=== PATIENT | female | born 1995 | race African-American/Black ===

== ENCOUNTER 2018-10-20 12:33 | Emergency (ER) | payer OTHER ==
[2018-10-20 12:44] VITALS: BMI 33.1
--- NOTE | 2018-10-20 13:14 | PDOC ---
History of Present Illness - General Chief Complaint: Weakness Stated Complaint: WEAKNESS Time Seen by Provider: 10/20/18 12:57 History Source: Patient Exam Limitations: Clinical Condition - History of Present Illness Initial Comments: 10/20/18 13:30 Patient with h/p bipola disorder, anxiety, GERD present with complains of diffused body pains, MENSAH and tingling sensation throughout lower back, lower legs and hands x 3 days. Patient report doing weight lifting and exercise at home 3 days ago prior to symptoms started. Patient have self d/c'ed her bipola, anxiety and GERD medication for a week now. Mother report patient was seen by psychiatrist 3 days ago for insomnia and started on medication for insomnia which Pt has stopped taking. Patient was seen 2 months ago for lower back pains and MRI of lumbar and theracic spine was unremarkable Timing/Duration: other (3 days) Past History - Past Medical History Allergies/Adverse Reactions: Allergies Allergy/AdvReac Type Severity Reaction Status Date / Time Penicillins Allergy Verified 10/20/18 12:38 Home Medications: Ambulatory Orders Methocarbamol [Robaxin -] 500 mg PO BID #14 tablet 10/20/18 Mirtazapine 7.5 mg PO HS 10/20/18 Naproxen 500 mg PO BID PRN #20 tablet 10/20/18 Omeprazole 20 mg PO BID 10/20/18 Asthma: Yes (rescue inhaler prn) COPD: No GI Disorders: Yes - Surgical History Cholecystectomy: Yes - Suicide/Smoking/Psychosocial Hx Smoking History: Never smoked Review of Systems - Review of Systems Able to Perform ROS?: Yes Is the patient limited Montenegrin proficient: No Constitutional: Yes: See HPI, Malaise HEENTM: No: Eye Pain, Blurred Vision, Recent change in vision, Ear Pain Respiratory: No: Symptoms reported, See HPI, Cough, Orthopnea, Shortness of Breath, SOB with Exertion, SOB at Rest, Stridor, Wheezing, Productive cough, Hemoptysis, Other Cardiac (ROS): No: Symptoms Reported, See HPI, Chest Pain, Edema, Irregular Heart Rate, Lightheadedness, Palpitations, Syncope, Chest Tightness, Other ABD/GI: Yes: Symptoms Reported, See HPI, Nausea, Rectal Bleeding. No: Constipated, Diarrhea, Difficulty Swallowing, Vomiting, Abdominal cramping Musculoskeletal: Yes: Muscle Weakness Neurological: Yes: Headache, Tingling (all over the body) All Other Systems: Reviewed and Negative *Physical Exam - Vital Signs Last Vital Signs Temp Pulse Resp BP Pulse Ox 98.4 F 71 18 108/58 L 99 10/20/18 12:42 10/20/18 12:42 10/20/18 12:42 10/20/18 12:42 10/20/18 12:42 - Physical Exam General Appearance: Yes: Nourished, Appropriately Dressed. No: Apparent Distress HEENT: positive: Normal ENT Inspection Neck: positive: Supple Respiratory/Chest: positive: Lungs Clear, Normal Breath Sounds. negative: Chest Tender, Respiratory Distress, Accessory Muscle Use Cardiovascular: positive: Regular Rhythm, Regular Rate. negative: Murmur Gastrointestinal/Abdominal: positive: Flat, Soft. negative: Tender Musculoskeletal: positive: Normal Inspection Extremity: positive: Normal Inspection Integumentary: positive: Normal Color Neurologic: positive: Fully Oriented, Alert, Normal Response ED Treatment Course - LABORATORY CBC & Chemistry Diagram: 10/20/18 12:00 10/20/18 12:00 Medical Decision Making - Medical Decision Making 10/20/18 13:34 Patient with h/p bipola disorder, anxiety, GERD present with complains of diffused body pains, MENSAH and tingling sensation throughout lower back, lower legs and hands x 3 days. Patient report doing weight lifting and exercise at home 3 days ago prior to symptoms started. Patient have self d/c'ed her bipola, anxiety and GERD medication for a week now. Mother report patient was seen by psychiatrist 3 days ago for insomnia and started on medication for insomnia which Pt has stopped taking. Patient was seen 2 months ago for lower back pains and MRI of lumbar and theracic spine was unremarkable Clinical exam unremarkable with normal cardio exam and normal lung exam. Subjective pain throughout body on exam. No motor deficit on exam. Patient is mildly anxious. Symptoms likely myalgia from exercise versus anxiety. EKG with no abnormal pathology. CBC, CMP, cardiac profile and CPK labs ordered. IV hydration with normal saline 1 L ordered. Hydroxyzine pomoate 50 mg by mouth ordered for anxiety. UA, urine hCG and urine culture labs ordered. Reassess after lab results 10/20/18 14:32 CBC,CMP,CPK and cardic labs unremarkable. Patient still report mild body pain. Toradol 30mg IV ordered for myalgia. Patient stable for discharge on naproxen and robaxin prn fo myalgia. Referral to psychologist given to DUANE Lott as per mother request for f/u of insomnia *DC/Admit/Observation/Transfer Diagnosis at time of Disposition: Myalgia - Discharge Dispostion Disposition: HOME Condition at time of disposition: Stable Decision to Admit order: No - Prescriptions Prescriptions: Methocarbamol [Robaxin -] 500 mg PO BID #14 tablet Naproxen 500 mg PO BID PRN #20 tablet PRN Reason: pain - Referrals Referrals: Oren Balderas, [employer] [Nurse Practitioner] - - Patient Instructions Printed Discharge Instructions: Muscle Strain Additional Instructions: Your labs and EKG was normal. Take prescribed medication as needed for body pains. Follow-up with referred Psychologist DUANE Lott for follow-up of insomnia - Post Discharge Activity
[2018-10-20] MEDS ORDERED: SODIUM CHLORIDE 1,000 ML IV STA (13:15)
[2018-10-20] MEDS ORDERED: hydrOXYzine PAMOATE 50 MG CAPSULE (FP) PO ONE (13:15)
[2018-10-20 13:53] LABS: BASO % 0.3 % (0-2.0); EOS % 0.6 % (0-4.5); HEMOGLOBIN 13.3 GM/dL (10.7-15.3); LYMPH % 31.8 % (8-40); MCH 30.5 pg (25.7-33.7); MCHC 33.1 g/dl (32.0-36.0); MEAN CELL VOLUME 92.1 fl (80-96); MEAN PLT VOLUME 9.9 fl (7.5-11.1); NEUT % 60.3 % (42.8-82.8); PLATELET COUNT 194 K/MM3 (134-434); RBC 4.34 M/mm3 (3.60-5.2); RDW 13.9 % (11.6-15.6); URINE APPEARANCE CLEAR; URINE BILIRUBIN NEGATIVE (NEGATIVE); URINE COLOR YELLOW; URINE GLUCOSE (UA) NEGATIVE (NEGATIVE); URINE KETONE 2+ (NEGATIVE); URINE LEUK ESTERASE NEGATIVE (NEGATIVE); URINE NITRITE NEGATIVE (NEGATIVE); URINE PROTEIN NEGATIVE (NEGATIVE); WHITE BLOOD COUNT 5.6 K/mm3 (4.0-10.0)
[2018-10-20 14:19] LABS: ALBUMIN 4.2 g/dl (3.4-5.0); BILIRUBIN,TOTAL 0.6 mg/dL (0.2-1); CALCIUM 9.2 mg/dL (8.5-10.1); CREATININE 0.7 mg/dL (0.55-1.3); POTASSIUM 4.4 mmol/L (3.5-5.1)
[2018-10-20] MEDS ORDERED: KETOROLAC TROMETHAMINE 30 MG/1 ML VIAL IVPUSH ONE (14:21)
[2018-10-20] MEDS ORDERED: KETOROLAC TROMETHAMINE 30 MG/1 ML VIAL ONE (14:41)
[2018-10-20] MEDS ORDERED: ACETAMINOPHEN 325 MG TABLET (FP) ONE (14:42)
[2018-10-20 14:54] VITALS: BP 114/64; PULSE 72; TEMP 98.1
--- NOTE | 2018-10-21 12:51 | EKG ---
Test Reason : Blood Pressure : / mmHG Vent. Rate : 065 BPM Atrial Rate : 065 BPM P-R Int : 158 ms QRS Dur : 094 ms QT Int : 400 ms P-R-T Axes : 048 069 060 degrees QTc Int : 416 ms NORMAL SINUS RHYTHM MINIMAL VOLTAGE CRITERIA FOR LVH, MAY BE NORMAL VARIANT BORDERLINE ECG NO PREVIOUS ECGS AVAILABLE Confirmed by JIM GARCIA MD ([id number]) on 10/21/2018 12:51:14 PM Referred By: Confirmed By:JIM GARCIA MD
== END 2018-10-20 14:50 | disposition home or self-care (01) ==
LOC: JER 12:33
PROC: 3E0337Z Introduction of Electrolytic and Water Balance Substance into Peripheral Vein, Percutaneous Approach (ICD-10-PCS; principal; 2018-10-20)
PROC: 3E0333Z Introduction of Anti-inflammatory into Peripheral Vein, Percutaneous Approach (ICD-10-PCS; 2018-10-20)
DX: M79.18 Myalgia, other site (principal); F31.9 Bipolar disorder, unspecified; F41.9 Anxiety disorder, unspecified; K21.9 Gastro-esophageal reflux disease without esophagitis; X50.9XXA Other and unspecified overexertion or strenuous movements or postures, initial encounter; X50.0XXA Overexertion from strenuous movement or load, initial encounter; Y93.B3 Activity, free weights; Y92.038 Other place in apartment as the place of occurrence of the external cause; Y99.8 Other external cause status
CPT/HCPCS: 36415; 80053; 81003; 82550; 84484; 84703; 85025; 87086; 93005; 93010; 96361; 96374; 99285-25; J7030